=== PATIENT | male | born 1965 | race Caucasian/White ===

== ENCOUNTER 2024-03-09 20:47 | Emergency (ER) | payer BC, SELFPAY ==
[2024-03-09 20:50] VITALS: BP 151/91
[2024-03-09 21:13] LABS: % Basophils 0.8 % (0-2); % Eosinophils 7.9 % (0-6); % Immature Granulocytes 0.2 % (0-0.5); % Lymphocytes 33.2 % (20.5-51.1); % Monocytes 8.6 % (1.7-9.3); % Neutrophils 49.3 % (42.2-75.2); Absolute Basophils 0.1 10^3/uL (0-0.2); Absolute Eosinophils 0.5 10^3/uL (0-0.7); Absolute Monocytes 0.5 10^3/uL (0.1-0.6); Absolute Neutrophils 2.9 10^3/uL (1.4-6.5); Hematocrit 41.4 % (39.0-52.0); Hemoglobin 14.4 g/dL (13.0-18.0); Mean Corp Hgb Conc. 34.8 g/dL (33.0-37.0); Mean Platelet Volume 8.9 fL (7.4-10.4); Nucleated Red Blood Cells % 0 % (-); Platelet Count 248 10^3/uL (130-400); Red Blood Cell Count 4.65 10^6/uL (4.70-6.10); Red Cell Dist. Width 13.5 % (11.5-14.5)
[2024-03-09 21:23] LABS: APTT 27.1 Sec (23.4-35.0)
[2024-03-09 21:32] LABS: ALT (SGPT) 25 U/L (0-50); AST (SGOT) 31 U/L (17-59); Albumin 4.7 g/dl (3.5-5.0); Alkaline Phosphatase 67 U/L (38-126); Blood Urea Nitrogen 22 mg/dl (9-20); Calcium 9.8 mg/dl (8.4-10.2); Carbon Dioxide 25 mmol/L (22-30); Chloride 104 mmol/L (98-107); Glucose 109 mg/dl (70-99); Potassium 4.3 mmol/L (3.5-5.1); Sodium 139 mmol/L (135-145); Total Bilirubin 0.7 mg/dl (0.2-1.3); eGFR > 60.00
[2024-03-09 21:36] LABS: Troponin I < 0.012 ng/ml
--- NOTE | 2024-03-09 23:23 | ED.GENMED ---
History of Present Illness
General
Chief Complaint: Cardiac Symptoms
Source: patient and spouse
Exam Limitations: none
Time Seen by Provider: 03/09/24 22:46
Nursing documentation reviewed up to this point in time: agreed with
History of Present Illness
History of Present Illness:
This is a 58-year-old gentleman who complains of substernal chest discomfort, mild ache that has been sporadic in nature over the past few weeks but more noticeable after exercise yesterday and then again today after walking up the steps. Chest
discomfort tonight occurred around 6 PM after walking up the steps lasted approximately 15 minutes and resolved.
He exercises on a regular basis without symptomatology, without chest pain no shortness of breath.
Intermittent episodes of chest discomfort have not been associated with shortness of breath nor palpitations, no dizziness nor lightheadedness, no diaphoresis, nonradiating, no nausea or vomiting.
No prior history of coronary artery disease but concerned as his father had history of CAD, of an ME at age 71. This was apparently his first ME.
Patient does however note that his father smokes cigarettes, was overweight, poor appetite.
Patient himself exercises on a regular basis, lifelong non-smoker and reports no history of hypertension nor hyperlipidemia and follows regularly with primary care physician.
His only daily medications are fish oil and vitamins.
Past History
Past History
ED Past Medical History: None
ED Past Surgical History: None
Social History
Tobacco: Non-smoker
Alcohol: Occasional
Drug: None
Personal:
Living: with family
Employment: Employed
Family History
Family History: CAD (Father at age 71 of an ME.)
Phy Exam
Physical Exam
Physical Exam:
GENERAL: 58-year-old gentleman appears his stated age, bright and alert, pleasant, appears in no acute distress. is accompanying.
EYE: anicteric
NECK: Supple, nontender, no meningismus, no significant adenopathy.
ENT: oral mucosa is moist. No rhinorrhea.
CARDIAC: Regular rate and rhythm. no murmur. No rub.
LUNGS: Clear breath sounds bilaterally, no acute respiratory distress, no wheezes/rales/rhonchi
ABDOMEN: Soft, nondistended, without focal tenderness, no r/g, no cvat. normoactive BS.
NEUROLOGICAL: Alert and oriented x3, no focal neuro deficits. Gait is mac and steady.
SKIN: Warm and dry, normal color, skin intact. No rash.
MUSCULOSKELETAL: No C/C/E. peripheral pulses are full and equal b/l. No palpable tenderness.
PSYCH: Normal and appropriate interaction.
Scores
Heart Score for Chest Pain Patients
STEMI patient?: No
History: Slightly or Non-Suspicious
ECG: Normal
Age: >45 - <65 years
Risk Factors: No Risk Factors
Troponin: </= Normal Limit
Heart Score for Chest Pain Patients: 1
Heart Score Risk: 2.5% MACE over next 6 weeks
Course
Orders/Labs/Results
Orders:
Orders
03/09/24 20:53
ECG [Electrocardiogram (*1)] Urgent
Reason for Study: Chest Pain
EKG- Treatment ONCE
03/09/24 21:03
Complete Blood Count/With Diff Urgent
Comprehensive Metabolic Panel Urgent
PTT Urgent
Troponin I Urgent
03/09/24 23:06
EKG [Electrocardiogram (*1)] Urgent
Reason for Study: Chest Pain
EKG- Treatment ONCE
03/09/24 23:14
Troponin I Urgent
Abnormal Lab Results
03/09/24
21:03
RBC 4.65 L 10^6/uL
(4.70-6.10)
Eosinophils % 7.9 H %
(0-6)
BUN 22 H mg/dl
(9-20)
Glucose 109 H mg/dl
(70-99)
03/09/24 21:03
03/09/24 21:03
Vital Signs
Initial and Last Documented VS:
Initial Vital Signs
Temp Pulse Resp BP Pulse Ox
98.3 F 61 20 151/91 93
03/09/24 20:50 03/09/24 20:50 03/09/24 20:50 03/09/24 20:50 03/09/24 20:50
Last Documented Vital Signs
Temp Pulse Resp BP Pulse Ox
98.3 F 61 20 151/91 93
03/09/24 20:50 03/09/24 20:50 03/09/24 20:50 03/09/24 20:50 03/09/24 20:50
MDM/Problems Addressed
Differential Diagnosis Includes:
Concern for ACS, GERD, musculoskeletal chest pain, pericarditis.
No history of thromboembolism nor significant risk factors for such.
It is reassuring that patient has been exercising on a regular basis without symptomatology.
Thus far workup in the ED is unremarkable. EKG shows normal sinus rhythm at 60, within normal limits. No acute ST-T wave abnormalities.
Labs are unremarkable including negative troponin.
Will plan to repeat EKG and troponin and if troponin remains flat/negative we will plan for discharge to home with referral to our chest pain hotline.
*Pulse Oximetry
Patient hypoxic: no
*EKG
Interpreted by ED Provider?: Yes
Interpretation: normal
Comparison EKG: no comparison EKG present
Rate: normal
Rhythm: sinus
Flint: normal axis
Interval: normal interval
QRS Pattern: normal QRS
Ischemia: no ischemia
*[employer] Interpretation
Rate: normal and bradycardiac
Interpretation: normal
Rhythm: sinus
*Critical Care Note
Total Time (30-74mins, 75-104mins- exclusive of procedures): Not Applicable
Update Note
Update Note:
03/09/2024 2349 PM
Repeat troponin remains negative.
Repeat EKG similar and unchanged from previous showing sinus bradycardia, no acute ST-T wave abnormalities.
Will discharge to home with referral to chest pain hotline.
Return precautions discussed.
ED Attending Note
-
Portions of this chart may have been created with voice recognition software.� Occasional wrong word or��sound alike� substitutions may have occurred due to the inherent limitations of voice recognition software.
Discharge Plan
Departure
Patient Disposition: Home (Routine Discharge)
Date of Disposition: 03/09/24
Time of Disposition: 23:50
Patient with high blood pressure during this ER visit?: No
Condition: Good
Discharge Problem:
Nonspecific chest pain
Instructions: Chest Pain DCA Follow Up
Referrals:
Pia Marcial, DO [Family Provider] - Call in 1-3 days for appt
Interventions
Interventions:
*Risk Screen - Suicide Last Done: 03/09/24 20:50
*General Assessment Last Done: 03/09/24 20:50
*Neglect/Abuse Screening Last Done: 03/09/24 20:50
ED- Fall Risk Assessment Last Done: 03/09/24 22:19
ED- Pulmonary Assessment Last Done: 03/09/24 22:19
ED- Cardiac Assessment Last Done: 03/09/24 22:19
Discharge Date and Time
Print Language: GERMAN
[2024-03-09 23:47] LABS: Troponin I < 0.012 ng/ml
[2024-03-09 23:57] VITALS: BP 109/72
== END 2024-03-09 23:58 | disposition home or self-care (01) ==
LOC: EMR 20:47
PROVIDERS: Emergency Medicine; EMERGENCY PHYSICIAN Emergency Medicine; FAMILY PHYSICIAN Internal Medicine
DX: R07.89 Other chest pain (principal)
CPT/HCPCS: 99284; 80053; 84484; 85025; 85730; 93005